=== PATIENT | male | born 1945 | race Caucasian/White ===

== ENCOUNTER 2022-01-11 13:44 | Observation (INO) | payer OTHER ==
[~2022-01-11] VITALS: Ht 188 cm; Wt 107.5 kg
[2022-01-11 14:32] LABS: BASOPHILS ABSOLUTE AUTO 0.04 K/mm3 (0.00-0.23); BASOPHILS PERCENT AUTO 1 % (0-2); EOSINOPHILS ABSOLUTE AUTO 0.06 K/mm3 (0.00-0.68); EOSINOPHILS PERCENT AUTO 1 % (0-6); Hematocrit 49.4 % (37.0-53.0); Hemoglobin 16.2 g/dL (13.5-17.5); IMMATURE GRAN PERCENT AUTO 3 % (0-1); LYMPHOCYTES ABSOLUTE AUTO 2.33 K/mm3 (0.84-5.20); LYMPHOCYTES PERCENT AUTO 29 % (21-46); MONOCYTES PERCENT AUTO 11 % (4-13); Mean Corpuscular HGB 28.8 pg (26.0-34.0); Mean Corpuscular HGB Conc 32.8 g/dL (31.5-36.5); Mean Corpuscular Volume 88 fL (80-100); NEUTROPHILS ABSOLUTE AUTO 4.61 K/mm3 (1.96-9.15); NEUTROPHILS PERCENT AUTO 57 % (41-73); Platelet Count 97 K/mm3 (150-400); RDW Coefficient Variation 13.8 % (11.7-14.2); RDW Standard Deviation 43.9 fL (35.1-46.3); Red Blood Cell Count 5.63 M/mm3 (4.30-5.90); White Blood Cell Count 8.14 K/mm3 (4.00-11.30)
[2022-01-11 14:54] LABS: Alanine Aminotransfer (ALT/SGP 92 U/L (12-78); Albumin, Blood 3.8 g/dL (3.4-5.0); Alk Phos 83 U/L (50-136); Anion Gap 5 mmol/L (6-16); Aspartate Aminotrans (AST/SGOT 54 U/L (12-37); Blood Urea Nitrogen 15 mg/dL (8-24); Bun/Creatinine Ratio 13.6 (12.0-20.0); CO2, Blood 29 mmol/L (21-32); Calcium, Blood 9.5 mg/dL (8.5-10.1); Chloride, Blood 106 mmol/L (98-108); Globulin, Blood 3.8 g/dL (2.2-4.0); Glomerular Filtration Rate >60 (60-); Glucose, Blood 144 mg/dL (70-99); Potassium, Blood 3.8 mmol/L (3.5-5.5); Sodium, Blood 140 mmol/L (136-145); Total Protein, Blood 7.6 g/dL (6.4-8.2)
[2022-01-11 17:14] LABS: Influenza A, PCR NEGATIVE (NEGATIVE); Influenza B, PCR NEGATIVE (NEGATIVE); Resp Syncytial Virus, PCR NEGATIVE (NEGATIVE); SARS-Cov-2 (COVID-19) PCR, MMC NEGATIVE (NEGATIVE)
[2022-01-11] MEDS ORDERED: HYDCHL12.5 PO (17:37)
[2022-01-11] MEDS ORDERED: Inderal40 MG PO (17:37)
[2022-01-11] MEDS ORDERED: FINA5 PO (17:37)
[2022-01-12 04:17] LABS: Hemoglobin 14.1 g/dL (13.5-17.5); Mean Corpuscular HGB 28.5 pg (26.0-34.0); Mean Corpuscular HGB Conc 32.8 g/dL (31.5-36.5); Mean Corpuscular Volume 87 fL (80-100); Platelet Count 73 K/mm3 (150-400); RDW Coefficient Variation 13.7 % (11.7-14.2); RDW Standard Deviation 43.1 fL (35.1-46.3); Red Blood Cell Count 4.94 M/mm3 (4.30-5.90); White Blood Cell Count 7.19 K/mm3 (4.00-11.30)
[2022-01-12 04:21] LABS: Mean Platelet Volume 12.6 fL (9.1-12.4)
[2022-01-12 04:37] LABS: Alanine Aminotransfer (ALT/SGP 67 U/L (12-78); Albumin, Blood 3.2 g/dL (3.4-5.0); Alk Phos 68 U/L (50-136); Anion Gap 4 mmol/L (6-16); Aspartate Aminotrans (AST/SGOT 32 U/L (12-37); Bilirubin, Total 1.3 mg/dL (0.1-1.0); Blood Urea Nitrogen 13 mg/dL (8-24); Bun/Creatinine Ratio 13.8 (12.0-20.0); CO2, Blood 31 mmol/L (21-32); Calcium, Blood 8.6 mg/dL (8.5-10.1); Chloride, Blood 106 mmol/L (98-108); Creatinine, Blood 0.94 mg/dL (0.60-1.20); Globulin, Blood 3.2 g/dL (2.2-4.0); Glomerular Filtration Rate >60 (60-); Glucose, Blood 124 mg/dL (70-99); Potassium, Blood 3.4 mmol/L (3.5-5.5); Sodium, Blood 141 mmol/L (136-145); Total Protein, Blood 6.4 g/dL (6.4-8.2)
--- NOTE | 2022-01-12 04:50 | NUR ---
SHIFT SUMMARY A/O X4. VSS. IND IN RM. NO PAIN REPORTED THROUGHOUT SHIFT. NPO SINCE MIDNIGHT. ABDOMEN SLIGHTLY DISTENDED BUT PATIENT STATES NORMAL. VOIDING WELL. WILL CONTINUE TO MONITOR AND REPORT TO ONCOMING RN.
--- NOTE | 2022-01-12 17:11 | NUR ---
PATIENT CURRENTLY SITTING EDGE OF BED WITH NO SIGNS OR SYMPTOMS ACUTE DISTRESS NOTED. CALL LIGHT AND WATER IN EASY REACH. ABLE TO MAKE NEEDS AND WANTS KNOWN. LAP SITES X 3 TO ABDOMEN WITH DERMABOND, NO DRAINAGE NOTED. CARLOS DRAIN TO RLQ WITH SEROSANG DRAINAGE NOTED. NO COMPLAINTS OF PAIN AT THIS TIME, NO COMPLAINTS OF NAUSEA AT THIS TIME. TAKING PO WELL. AAOX4. PATIENT IS UP AD JOSE ANGEL, STEADY ON FEET. WILL MONITOR.
[2022-01-13 04:01] LABS: BASOPHILS ABSOLUTE AUTO 0.02 K/mm3 (0.00-0.23); BASOPHILS PERCENT AUTO 0 % (0-2); EOSINOPHILS ABSOLUTE AUTO 0.03 K/mm3 (0.00-0.68); EOSINOPHILS PERCENT AUTO 0 % (0-6); Hematocrit 41.8 % (37.0-53.0); Hemoglobin 13.6 g/dL (13.5-17.5); IMMATURE GRAN ABSOLUTE AUTO 0.26 K/mm3 (0.00-0.10); IMMATURE GRAN PERCENT AUTO 2 % (0-1); LYMPHOCYTES PERCENT AUTO 12 % (21-46); MONOCYTES ABSOLUTE AUTO 1.21 K/mm3 (0.16-1.47); MONOCYTES PERCENT AUTO 11 % (4-13); Mean Corpuscular HGB 28.7 pg (26.0-34.0); Mean Corpuscular HGB Conc 32.5 g/dL (31.5-36.5); Mean Corpuscular Volume 88 fL (80-100); NEUTROPHILS ABSOLUTE AUTO 8.15 K/mm3 (1.96-9.15); NEUTROPHILS PERCENT AUTO 74 % (41-73); Platelet Count 71 K/mm3 (150-400); RDW Coefficient Variation 13.8 % (11.7-14.2); RDW Standard Deviation 44.2 fL (35.1-46.3); Red Blood Cell Count 4.74 M/mm3 (4.30-5.90); White Blood Cell Count 10.97 K/mm3 (4.00-11.30)
[2022-01-13 04:05] LABS: Mean Platelet Volume 13.8 fL (9.1-12.4)
--- NOTE | 2022-01-13 04:18 | NUR ---
SHIFT SUMMARY POD1 LAP CHOLECTOMY. 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 PT REPORTS PASSING FLATUS. TOLERATING PO INTAKE WITH NO N/V. VOIDING AND AMBULATING IND IN ROOM. TREATED FOR PAIN PER EMAR ONE TIME AT THE BEGINING OF SHIFT. VITAL SIGNS STABLE. PLEASANT AND COOPERATIVE THROUGHOUT THE SHIFT, WILL CONTINUE TO MOITOR AND REPORT TO ONCOMING RN.
[2022-01-13 04:20] LABS: Alanine Aminotransfer (ALT/SGP 289 U/L (12-78); Albumin, Blood 3.1 g/dL (3.4-5.0); Albumin/Globulin Ratio 0.9 (0.8-1.8); Alk Phos 97 U/L (50-136); Anion Gap 6 mmol/L (6-16); Aspartate Aminotrans (AST/SGOT 280 U/L (12-37); Bilirubin, Total 1.7 mg/dL (0.1-1.0); Blood Urea Nitrogen 14 mg/dL (8-24); Bun/Creatinine Ratio 12.2 (12.0-20.0); CO2, Blood 30 mmol/L (21-32); Calcium, Blood 8.7 mg/dL (8.5-10.1); Chloride, Blood 103 mmol/L (98-108); Creatinine, Blood 1.15 mg/dL (0.60-1.20); Globulin, Blood 3.4 g/dL (2.2-4.0); Glomerular Filtration Rate >60 (60-); Glucose, Blood 186 mg/dL (70-99); Phosphorus, Blood 2.4 mg/dL (2.5-4.9); Potassium, Blood 3.9 mmol/L (3.5-5.5); Sodium, Blood 139 mmol/L (136-145); Total Protein, Blood 6.5 g/dL (6.4-8.2)
[2022-01-13] MEDS ORDERED: Norco 5-325 Ta1 EACH PO (13:07)
[2022-01-13] MEDS ORDERED: Colace100 MG PO (13:07)
[2022-01-13] MEDS ORDERED: MIRALAX17 GM PO (13:08)
--- NOTE | 2022-01-13 13:28 | NUR ---
DISCHARGE INSTUCTIONS GIVEN AT THIS TIME. PATIENT VERBALIZED UNDERSTANDING OF DC INSTRUCTIONS. MEDS FAXED TO [facility]. PRESCRIPTION GIVEN FOR PAIN MEDS. DRESSING TO [facility]. NO SIGNS OR SYMPTOMS ACUTE DISTRESS NOTED. NO COMPLAINTS OF PAIN VOICED. PATIENT AMBULATED TO CAR.
== END 2022-01-13 13:25 | disposition home or self-care (01) ==
LOC: ER 13:44 → SURS 13:45
PROVIDERS: Physician Assistant; Surgery; ADMIT Internal Medicine
PROC: 0FT44ZZ Resection of Gallbladder, Percutaneous Endoscopic Approach (ICD-10-PCS; principal; 2022-01-12 08:30)
PROC: BF10YZZ Fluoroscopy of Bile Ducts using Other Contrast (ICD-10-PCS; principal; 2022-01-12 08:30)
DX: K80.00 Calculus of gallbladder with acute cholecystitis without obstruction (principal); D69.6 Thrombocytopenia, unspecified; I10 Essential (primary) hypertension; N40.0 Benign prostatic hyperplasia without lower urinary tract symptoms; R79.89 Other specified abnormal findings of blood chemistry; E88.81 Metabolic syndrome and other insulin resistance; Z87.891 Personal history of nicotine dependence; Z20.822 Contact with and (suspected) exposure to COVID-19
CPT/HCPCS: 0241U; 36415; 74300; 76705; 80053; 83690; 84100; 85025; 85027; 86850; 86900; 86901; 99285-25; A9270; C1729; J0690; J1100; J2250; J2405; J2543; J2704; J3010; J7030

== ENCOUNTER 2023-04-09 09:52 | Inpatient (IN) | payer OTHER ==
[~2023-04-09] VITALS: Ht 188 cm; Wt 83.9 kg
[~2023-04-09 09:52] MED LIST: Colace100 MG PO; FINA5 PO; HYDCHL12.5 PO; Inderal40 MG PO; MIRALAX17 GM PO; Norco 5-325 Ta1 EACH PO
[2023-04-09 10:44] LABS: Hemoglobin 14.6 g/dL (13.5-17.5); Mean Corpuscular HGB 26.2 pg (26.0-34.0); Mean Corpuscular HGB Conc 31.7 g/dL (31.5-36.5); Mean Corpuscular Volume 83 fL (80-100); Platelet Count 109 K/mm3 (150-400); RDW Coefficient Variation 14.6 % (11.7-14.2); RDW Standard Deviation 43.8 fL (35.1-46.3); Red Blood Cell Count 5.57 M/mm3 (4.30-5.90)
[2023-04-09 10:53] LABS: White Blood Cell Count 18.67 K/mm3 (4.00-11.30)
[2023-04-09 10:58] LABS: International Normalized Ratio 1.19; Prothrombin Time Results 12.4 Sec (9.7-11.5)
[2023-04-09 11:10] LABS: BASOPHILS PERCENT MAN 0 % (0-2); EOSINOPHILS ABSOLUTE MAN 0.18 K/mm3 (0.00-0.68); EOSINOPHILS PERCENT MAN 1 % (0-6); LYMPHOCYTES ABSOLUTE MAN 0.74 K/mm3 (0.84-5.20); LYMPHOCYTES PERCENT MAN 4 % (21-46); MONOCYTES ABSOLUTE MAN 2.42 K/mm3 (0.16-1.47); MONOCYTES PERCENT MAN 13 % (4-13); MYELOCYTE ABSOLUTE MAN 0.18 K/mm3 (0.00-0.00); MYELOCYTE PERCENT MAN 1 % (0-0); NEUTROPHILS ABSOLUTE MAN 15.12 K/mm3 (1.96-9.15); SEG NEUTROPHILS PERCENT MAN 81 % (41-73); TOTAL CELLS COUNTED 100
[2023-04-09 11:20] LABS: Albumin, Blood 3.4 g/dL (3.4-5.0); Albumin/Globulin Ratio 0.9 (0.8-1.8); Bilirubin, Total 1.3 mg/dL (0.1-1.0); Bun/Creatinine Ratio 26.5 (12.0-20.0); Calcium, Blood 9.3 mg/dL (8.5-10.1); Creatinine, Blood 1.13 mg/dL (0.60-1.20); Globulin, Blood 3.8 g/dL (2.2-4.0); Potassium, Blood 4.1 mmol/L (3.5-5.5); Total Protein, Blood 7.2 g/dL (6.4-8.2)
[2023-04-09 14:02] VITALS: BP 151/83
[2023-04-09 16:03] VITALS: BP 113/67
--- NOTE | 2023-04-09 16:27 | NUR ---
TRANSFER SUMMARY: PT ARRIVED TO PCU FROM ER VIA [facility] AT APPROX 1345. PT ALERT AND ORIENTED X4, ABLE TO MAKE NEEDS KNOWN AND ANSWER QUESTIONS APPROPRIATELY. PT APPEARS SHORT OF BREATH AND HAS A HARD TIME LAYING FLAT. PT ON 2L NASAL CANNULA WITH SPO2 IN THE 90'S. PT IN AFIB WITH RVR, HR 140-150'S WITH EXERTION, ON CARDIZEM GTT AT 10 ML/HR. PT ABLE TO STAND AND TRANSFER WITH MINIMAL ASSIST. PT STARTED ON HEPARIN GTT AT 15 U/KG/HR. PT AT THE BEDSIDE AND UPDATED TO PLAN OF CARE. PT EDUCATED ON THE USE OF THE CALL LIGHT WHEN GETTING OUT OF BED. WILL CONTINUE TO MONITOR.
[2023-04-09 19:55] VITALS: BP 118/87
[2023-04-10 00:18] VITALS: BP 126/74
[2023-04-10 03:02] VITALS: BP 119/104
[2023-04-10 04:25] LABS: Hematocrit 41.3 % (37.0-53.0); Hemoglobin 13.2 g/dL (13.5-17.5); Mean Corpuscular HGB 26.1 pg (26.0-34.0); Mean Corpuscular Volume 82 fL (80-100); Platelet Count 92 K/mm3 (150-400); RDW Coefficient Variation 14.6 % (11.7-14.2); RDW Standard Deviation 43.2 fL (35.1-46.3); Red Blood Cell Count 5.05 M/mm3 (4.30-5.90)
[2023-04-10 04:47] LABS: White Blood Cell Count 15.35 K/mm3 (4.00-11.30)
[2023-04-10 04:48] LABS: Creatinine, Blood 1.16 mg/dL (0.60-1.20); Potassium, Blood 3.1 mmol/L (3.5-5.5); Thyroid Stimulating Hormone 0.906 uIU/mL (0.360-4.800)
--- NOTE | 2023-04-10 06:55 | NUR ---
SHIFT SUMMARY PATIENT ALERT AND ORIENTED X4. HAD NO COMPLAINTS OF PAIN OR SHORTNESS OF BREATH. LUNG SOUNDS CLEAR, ON 2 LITERS O2 VIA NASAL CANULA. BLOOD PRESSURE STABLE. PATIENT CONTINUES ON CARDIZEM FOR RATE CONTROL, CURRENTLY RUNNING AT 5 MG/HR. PATIENT MEDICATED WITH [address] FLETCHER FOR POTASSIUM OF 3.1 THIS MORNING. HEPARING RUNNING AT 15 U/KG/HR. WILL CONTINUE TO MONITOR. CALL LIGHT WITHIN REACH.
[2023-04-10 07:40] VITALS: BP 130/73
[2023-04-10 11:16] VITALS: BP 114/82
[2023-04-10 16:09] VITALS: BP 151/98
--- NOTE | 2023-04-10 17:01 | NUR ---
SHIFT SUMMARY PT IS A&O X4. VSS. SPO2 >92% ON 1 L NC. AFIB HR 110'S-150'S. PT DENIES CP OR SOB. CARDIZEM GTT INFUSING @ RATE OF 15 ML/HR. HEPARIN GTT INFUSING 15 UNITS/KG/HR PER ORDERS. ECHO DONE IN ROOM TODAY PER MD ORDERS. PT WITH NO OTHER COMPLAINTS AT THIS TIME. BED IN LOWEST POSITION AND CALL LIGHT IN REACH.
[2023-04-10 20:00] VITALS: BP 123/93
[2023-04-11] VITALS (7 sets, daily range): BP systolic 102–149; BP diastolic 23–121
[2023-04-11 04:36] LABS: Bun/Creatinine Ratio 27.2 (12.0-20.0); Creatinine, Blood 1.03 mg/dL (0.60-1.20); Potassium, Blood 3.5 mmol/L (3.5-5.5)
[2023-04-11 04:43] LABS: Hematocrit 40.6 % (37.0-53.0); Mean Corpuscular HGB 25.9 pg (26.0-34.0); Mean Corpuscular Volume 81 fL (80-100); Platelet Count 84 K/mm3 (150-400); RDW Coefficient Variation 14.6 % (11.7-14.2); RDW Standard Deviation 42.8 fL (35.1-46.3); Red Blood Cell Count 5.02 M/mm3 (4.30-5.90)
[2023-04-11 04:49] LABS: White Blood Cell Count 14.31 K/mm3 (4.00-11.30)
--- NOTE | 2023-04-11 05:53 | NUR ---
SHIFT SUMMARY PT REMAINS A&O X4. VSS THROUGHOUT SHIFT; HEART RHYTHM REMAINS AFIB, HR 90- 1 TEENS. HR CONTINUES TO INCREASE TO 120 - 140'S W/EXERTION. CARDIZEM GTT INFUSING AT 15 MLS/HR. PT DENIES CP OR PRESSURE. PT REPORTS SOB W/EXERTION. PT ON 1 - 2 L PRN, THIS SHIFT PT ON 2 L VIA NC WHILE SLEEPING. PT DENIES ANY ISSUES VOIDING OR PASSING BM. PT USING URINAL INDEPENDENTLY AT BEDSIDE. NO ACUTE CHANGES DURING THIS SHIFT. HEPARIN INFUSING PER EMAR AT 15 U/KG/HR. CALL LIGHT IN REACH. PT RESTED WELL THIS SHIFT. WILL UPDATE ONCOMING RN
--- NOTE | 2023-04-11 17:57 | NUR ---
SHIFT SUMMARY PT IS A&O X4. VSS. SPO2 >92% ON 1L NC. AFIB HR 90'S-110'S W/ CARDIZEM GTT INFUSING @ 10 ML/HR. HEPARIN GTT DISCONTINUED PER MD ORDERS AND XARELTO STARTED PER ORDERS. PT LYING IN BED IN LOWEST POSITION. PT WITH NO OTHER COMPLAINTS. CALL LIGHT IN REACH. WILL CONTINUE TO MONITOR.
--- NOTE | 2023-04-11 20:58 | NUR ---
ASSUMPTION OF CARE THIS RN ASSUMED CARE OF PATIENT AT 1900. REPORT TAKEN FROM EFE GARCIA AND STUDENT RN HARPREET. PATIENT ALERT AND ORIENTED FULLY, ABLE TO MAKE NEEDS KNOWN. BP STABLE. AFEBRILE. SPO2 >92% ON 1L VIA NC. AFIB WITH HR 80-100'S. CARDIZEM GTT PLACED ON STANDBY AT 2100 D/T HR MAINTAINING 70-90'S. PATIENT IS ABLE TO REPOSITION SELF IN BED INDEPENDENTLY. BED IN LOWEST POSITION AND CALL LIGHT WITHIN REACH.
[2023-04-12] VITALS (9 sets, daily range): BP systolic 96–128; BP diastolic 58–83
--- NOTE | 2023-04-12 05:12 | NUR ---
SHIFT SUMMARY PATIENT DID WELL WITH CARDIZEM GTT ON STANDBY MOST OF THE NIGHT. HOWEVER, HR TRENDED UP AND GTT WAS TURNED BACK TO 5MLS/HR, TITRATING TO 10MLS/HR. HR CURRENTLY MAINTAINING 110-120'S. BP STABLE. AFEBRILE. SPO2 >92% ON 1L. PATIENT INDEPENDENT WITH ADL'S. ALERT AND ORIENTED FULLY. ABLE TO MAKE NEEDS KNOWN. BED IN LOWEST POSITION AND CALL LIGHT WITHIN REACH. THIS RN WILL CONTINUE TO MONITOR UNTIL SHIFT CHANGE AT 0700.
--- NOTE | 2023-04-12 17:29 | NUR ---
END OF SHIFT SUMMARY PT IS A&O X4. VSS. SPO2 >92% ON RA. AFIB HR 80'S-110'S. CARDIZEM GTT INFUSING THIS AM AT 10 ML/HR. TITRATED OFF THIS SHIFT WITH PT TAKING PO CARDIZEM PRN PER MD SON. PT DENIES ANY CP OR SOB. PT RESTING IN BED IN LOWEST POSITION AND CALL LIGHT IN REACH. PT WITH NO OTHER COMPLAINTS AT THIS TIME.
[2023-04-13] VITALS (7 sets, daily range): BP systolic 99–123; BP diastolic 62–77
--- NOTE | 2023-04-13 05:08 | NUR ---
SHIFT SUMMARY THIS RN ASSUMED CARE OF PATIENT AT 1900. PATIENT CONTINUES TO BE IN AFIB. PRN PO CARDIZEM USED Q6HRS FOR RATE CONTROL. HR 90-130'S DURING THIS SHIFT. BP STABLE. AFEBRILE. SPO2 >92% ON RA. PATIENT INDEPENDENT WITH ADL'S. ALERT AND ORIENTED FULLY AND ABLE TO MAKE NEEDS KNOWN. BED IN LOWEST POSITION AND CALL LIGHT WITHIN REACH. THIS RN WILL CONTINUE TO MONITOR UNTIL SHIFT CHANGE AT 0700.
[2023-04-13 11:37] LABS: Bun/Creatinine Ratio 21.4 (12.0-20.0); Calcium, Blood 9.2 mg/dL (8.5-10.1); Creatinine, Blood 1.12 mg/dL (0.60-1.20); Potassium, Blood 3.9 mmol/L (3.5-5.5)
[2023-04-13 15:22] LABS: Source, Urine Clean Catch
[2023-04-13 15:45] LABS: Appearance, Urine Clear (Clear); Bilirubin, Urine Neg (Neg); Blood, Urine 2+ (Neg); Color, Urine Yellow (P-Yellow); Glucose Qualitative, Urine Neg (Neg); Ketones, Urine Neg (Neg); Leukocyte Esterase, Urine Neg (Neg); Nitrite, Urine Neg (Neg); Protein, Urine 1+ (Neg); Specific Gravity, Urine 1.015 (1.003-1.022); Urobilinogen, Urine NORM (Normal)
[2023-04-13 16:45] LABS: Bacteria Mod /hpf; Squamous Epithelial Cells Rare /hpf (Few); White Blood Cells, Urine 0-2 /hpf (0-5)
--- NOTE | 2023-04-13 17:42 | NUR ---
SHIFT SUMMARY PT A&OX4. SP02>90% oN RA. SOB W/ SOME EXERTION. TELEMETRY SHOWED AT BEGINNING OF SHIFT AFIB, HR MOSTLY 120'S UP TO 17O'S W/ MOVEMENT. MD SON IN ROOM TO ASSESS PT. MD SON INCREASED METOPROLOL DOSE, SEE EMAR. MD SON W/ ONE ADDITIONAL DOSE METOPROLOL PO THIS EVENING. CARDIZEM PO GIVEN PER PRN EMAR. PT'S HR CURRENTLY 100'S. BP 90'S-100'S SYSTOLIC. PT REPORTS "BURNING" THIS AFTERNOON WHILE VOIDING. CALL PLACED TO MD SON. MD SON W. ORDERS FOR UA. COLLECTED AND SENT TO LAB, SEE RESULTS. PT UP TO BSC TO HAVE BM. IN ROOM FOR MOST OF DAY. CALL LIGHT IN REACH.
[2023-04-14] VITALS (7 sets, daily range): BP systolic 93–121; BP diastolic 44–98
--- NOTE | 2023-04-14 05:38 | NUR ---
SHIFT SUMMARY A/OX4, SBA TO BSC/IND WITH URINAL. SPO2 >92% ON RA. TELE AFIB 100-130, INCREASES TO 150S WITH EXERTION. MEDICATED WITH PRN PO CARDIZEM. DENIES CHEST PAIN/PRESSURE. VSS, NO ACUTE CHANGES AT THIS TIME. BED IN LOWEST POSITION WITH CALL LIGHT IN REACH. WILL CONTINUE TO MONITOR AND REPORT TO ONCOMING RN.
--- NOTE | 2023-04-14 07:40 | NUR ---
ASSUMED CARE: ASSUMED CARE OF PT APPROX 0715. PT A&OX4, RESTING IN BED. PT ABLE TO MAKE NEEDS TO KNOWN THIS AM. SPO2 >90% ON RA. PT DENIES SOB. SBP 121. HR 110'S, AFIB. PT DENIES CHEST PAIN/PRESSURE. PT ABLE TO VOID INDEPENDENTLY WITH URINAL. NO FURTHER NEEDS AT THIS TIME. CALL LIGHT WITHIN REACH.
--- NOTE | 2023-04-14 18:03 | NUR ---
SHIFT SUMMARY: PT A&OX4. ABLE TO MAKE NEEDS KNOWN TO STAFF. SPO2 >90% ON RA. SOB WITH EXERTION. PT DENIES SOB AT REST. HR MOSTLY 110-130'S, AFIB. HR UP TO 160'S WITH MOVEMENT. PO CARDIZEM ADMINISTERED THIS AM. PRN CARDIZEM THEN DC'D. HR INCREASED TO 160'S THIS PM. CALL PLACED TO MD CANALES. MD CANALES WITH ORDERS FOR 1 TIME PO CARDIZEM. ADMINISTERED PER EMAR. SBP MOSTLY 90-100'S THIS SHIFT. PT DENIES CP/PRESSURE. PT ABLE TO VOID INDEPENDENTLY WITH URINAL. PT'S AT BEDSIDE. CALL LIGHT WITHIN REACH. NO FURTHER NEEDS AT THIS TIME.
[2023-04-15 04:53] VITALS: BP 116/72
[2023-04-15 05:06] LABS: Calcium, Blood 9.7 mg/dL (8.5-10.1); Creatinine, Blood 1.16 mg/dL (0.60-1.20); Magnesium, Blood 2.2 mg/dL (1.6-2.4); Potassium, Blood 4.5 mmol/L (3.5-5.5)
[2023-04-15 07:31] VITALS: BP 102/70
[2023-04-15 09:17] VITALS: BP 102/56
--- NOTE | 2023-04-15 10:26 | NUR ---
AM NOTE: PATIENT ALERT AND ORIENTED X4. HARD OF HEARING. PERRLA, WEARING GLASSES. DENIES NUMBNESS/TINGLING. ABLE TO MOVE AND ADJUST SELF IND IN BED. THIS RN ASKED FOR PATIENT TO CALL WHEN UP, SO WE CAN ASSIST TO BATHROOM. ON ROOM AIR SATING ABOVE 95%. SOB WITH MOVEMENTS. LUNGS SOUNDING CLEAR/DIM IN UPPER LOBES AND DIMINISHED IN BASES. NO CRACKLES/WHEEZING HEARD. DENIES COUGH. TELE SHOWING AFIB RVR WITH HR 120-130'S AT REST AND UP TO 160'S WITH MOVEMENT. DENIES CHEST PAIN/PRESSURE/PALPITATIONS. DENIES FEELING HEART RACING. BP ON SOFT SIDE. NO SIGNS OF EDEMA NOTED. DR. CANALES CALLED THIS AM REGARDING PATIENT HEART RATE. SEE EMAR FOR ORDERS. AMIO GTT STARTED PER DR. CANALES. PATIENT EDUCATED ON MEDICATION AND POTENTIAL SIDE EFFECTS. AMIO INFUSING IN LEFT FA IV. HR TRENDING DOWN, AVERAGING 120'S. DENIES ABDOMINAL PAIN/NAUSEA. VOIDING AND EATING WNL. USING URINAL AT BEDSIDE. PATIENT SLEEPING AT THIS TIME.
[2023-04-15 11:46] VITALS: BP 123/54
--- NOTE | 2023-04-15 12:04 | NUR ---
AFTERNOON VITALS REMAIN STABLE. AMIO GTT CONTINUES TO INFUSE. AT BEDSIDE AND UPDATED ON PLAN OF CARE. HR AVERAGING 110-120'S AT REST IN BED. OCCASIONALLY SPIKING UP TO 140'S WITH ACTIVITY AND REST ON AMIO GTT. EATING LUNCH AT THIS TIME.
[2023-04-15 15:01] VITALS: BP 117/56
--- NOTE | 2023-04-15 17:35 | NUR ---
SHIFT SUMMARY: NO ACUTE CHANGES. REMAINS ALERT AND ORIENTED X4. ON ROOM AIR. TELE SHOWING AFIB WITH HR 90-130'S. AMIO GTT CONTINUES TO INFUSE PER EMAR. IV SITE CHECKS FREQUENTLY. DENIES ABDOMINAL PAIN/NAUSEA. USING URINAL TO VOID. EATING DINNER AT THIS TIME. AT BEDSIDE. CONTINUES TO DENY CHEST PAIN/PRESSURE/PALPITATIONS. BP STABLE.
[2023-04-15 19:55] VITALS: BP 101/61
[2023-04-16 00:54] VITALS: BP 112/69
[2023-04-16 04:13] LABS: Albumin, Blood 3.3 g/dL (3.4-5.0); Albumin/Globulin Ratio 0.9 (0.8-1.8); Bilirubin, Total 1.4 mg/dL (0.1-1.0); Bun/Creatinine Ratio 26.1 (12.0-20.0); Creatinine, Blood 1.15 mg/dL (0.60-1.20); Globulin, Blood 3.7 g/dL (2.2-4.0); Potassium, Blood 4.6 mmol/L (3.5-5.5)
[2023-04-16 05:30] VITALS: BP 111/71
--- NOTE | 2023-04-16 05:57 | NUR ---
SHIFT SUMMARY A/OX4, SBA TO BSC/IND WITH URINAL. SPO2 >92% ON RA. TELE AFIB 100-130, AMIO GTT CURRENTLY RUNNING. MEDICATED WITH PRN PO CARDIZEM. DENIES CHEST PAIN/PRESSURE. VSS, NO ACUTE CHANGES AT THIS TIME. BED IN LOWEST POSITION WITH CALL LIGHT IN REACH. WILL CONTINUE TO MONITOR AND REPORT TO ONCOMING RN.
[2023-04-16 07:32] VITALS: BP 115/74
--- NOTE | 2023-04-16 08:00 | NUR ---
UPDATE DURING AM ASSESSMENT NOTED PT TO HAVE IV INFILTRATION OF AMIO GTT IN L ARM. IV STOPPED, IV REMOVED, ICE PLACED. AMIO GTT RE-STARTED IN R AC IV. WITHIN 10 MINUTES IV INFILTRATED. NEW IV PLACED. PHARMACY NOTIFIED, MD NOTIFIED. SEE EMAR FOR ORDERS. WILL CONT TO MIGUEL.
--- NOTE | 2023-04-16 10:30 | NUR ---
AMIO GTT FINISHED INFUSING THROUGH L AC. SITE WNL. WILL CONSULT MD REGARDING PLAN FOR AMIO D/T INFILTRATION THIS AM. WILL CONT TO MONITOR.
[2023-04-16 12:26] VITALS: BP 107/77
--- NOTE | 2023-04-16 14:00 | NUR ---
UPDATE SPOKE WITH MD REGARDING PO AMIO. PLAN TO CONT AMIO GTT AT 17 ML/HR AND INCLUDE PO AMIO. PLAN TO RE-ASSESS HR LATER ON AND PLAN TO D/C AMIO GTT ONCE HR UNDER CONTROL. WILL CONT TO MARIYA.
--- NOTE | 2023-04-16 17:54 | NUR ---
SHIFT SUMMARY PT ALERT AND ORIENTED X 4. HR TACHY, AFIB. HR 110-130'S. AWARE. PT ON AMIO GTT AT 17 ML/HR. PT MARYCRUZ WELL. ICE PACK TO INFILTRATION SITES. PT REPORTS RELIEF. OXYGEN SATURATION MAINTAINED ABOVE 92% ON RA. PT SBA TO BATHROOM. PT ABLE TO TURN SELF IN BED. AT BEDSIDE WITH PT. NO CP OR PRESSURE REPORTED. CALL LIGHT WITHIN REACH. WILL CONT TO MONITOR UNTIL REPORT GIVEN TO NIGHTSHIFT RN.
[2023-04-16 20:26] VITALS: BP 129/90
[2023-04-16 23:22] VITALS: BP 107/80
[2023-04-17 04:00] VITALS: BP 117/83
[2023-04-17 04:16] LABS: Hematocrit 42.6 % (37.0-53.0); Hemoglobin 13.7 g/dL (13.5-17.5); Mean Corpuscular HGB 25.9 pg (26.0-34.0); Mean Corpuscular HGB Conc 32.2 g/dL (31.5-36.5); Mean Corpuscular Volume 81 fL (80-100); Platelet Count 69 K/mm3 (150-400); RDW Coefficient Variation 14.8 % (11.7-14.2); RDW Standard Deviation 43.1 fL (35.1-46.3); Red Blood Cell Count 5.29 M/mm3 (4.30-5.90)
[2023-04-17 04:37] LABS: Albumin, Blood 3.3 g/dL (3.4-5.0); Albumin/Globulin Ratio 0.9 (0.8-1.8); Bilirubin, Total 1.4 mg/dL (0.1-1.0); Calcium, Blood 9.4 mg/dL (8.5-10.1); Creatinine, Blood 1.25 mg/dL (0.60-1.20); Globulin, Blood 3.7 g/dL (2.2-4.0); Potassium, Blood 4.4 mmol/L (3.5-5.5)
[2023-04-17 04:48] LABS: White Blood Cell Count 15.93 K/mm3 (4.00-11.30)
[2023-04-17 04:52] LABS: BAND PERCENT MAN 4 % (0-8); BASOPHILS ABSOLUTE MAN 0.15 K/mm3 (0.00-0.23); BASOPHILS PERCENT MAN 1 % (0-2); EOSINOPHILS ABSOLUTE MAN 0.31 K/mm3 (0.00-0.68); EOSINOPHILS PERCENT MAN 2 % (0-6); LYMPHOCYTES ABSOLUTE MAN 0.79 K/mm3 (0.84-5.20); LYMPHOCYTES PERCENT MAN 5 % (21-46); MONOCYTES ABSOLUTE MAN 2.54 K/mm3 (0.16-1.47); MONOCYTES PERCENT MAN 16 % (4-13); SEG NEUTROPHILS PERCENT MAN 72 % (41-73); TOTAL CELLS COUNTED 100
--- NOTE | 2023-04-17 05:05 | NUR ---
SHIFT SUMMARY ASSUMED CARE OF PT AT 1900. PT IS A/OX4. NO ACUTE EVENTS. PT SLEPT T/O THE NOC. PT HAD SOME PAIN FROM ANGIO INFILTRATION SITE, MEDICATED PER EMAR AND PT STATES RELEIF.
[2023-04-17 08:41] VITALS: BP 97/72
[2023-04-17 08:48] VITALS: BP 117/71
[2023-04-17 11:08] VITALS: BP 91/73
[2023-04-17 16:40] VITALS: BP 125/73
--- NOTE | 2023-04-17 16:44 | NUR ---
SHIFT SUMMARY This RN assumed care at 0700. vital signs stable, and have remained stable throughout this RN shift. tele afib 100-120. patient is alert and oriented x4. perrla. patient is indepdent in the room. patient uses the call light approrpiately. patient reports no pain, chest pain/pressure, or shortness of breath. see shift assessment for further detials. patient has been at bedside on and off throughout the day. no acute changes. plan of care is up to date.
[2023-04-17 19:35] VITALS: BP 118/79
[2023-04-18] VITALS (7 sets, daily range): BP systolic 101–127; BP diastolic 67–85
--- NOTE | 2023-04-18 05:25 | NUR ---
SHIFT SUMMARY ASSUMED CARE OF PT AT 1900. PT IS A/OX4. HEART SOUNDS IRREGULAR. LUNG SOUNDS IMPROVED AND CLEAR. PT USED IRNAL AT BEDSIDE. AMIO GTT OFF AT 2100. PT HR RANGED FROM 100-120. NO ACUTE EVENTS.
[2023-04-18 08:09] LABS: Hematocrit 42.2 % (37.0-53.0); Hemoglobin 13.7 g/dL (13.5-17.5); Mean Corpuscular HGB Conc 32.5 g/dL (31.5-36.5); Mean Corpuscular Volume 80 fL (80-100); Platelet Count 68 K/mm3 (150-400); RDW Coefficient Variation 14.8 % (11.7-14.2); RDW Standard Deviation 42.8 fL (35.1-46.3); Red Blood Cell Count 5.27 M/mm3 (4.30-5.90)
[2023-04-18 08:22] LABS: White Blood Cell Count 14.84 K/mm3 (4.00-11.30)
[2023-04-18 08:35] LABS: Bun/Creatinine Ratio 25.2 (12.0-20.0); Calcium, Blood 9.4 mg/dL (8.5-10.1); Creatinine, Blood 1.11 mg/dL (0.60-1.20); Potassium, Blood 4.4 mmol/L (3.5-5.5)
[2023-04-18 08:57] LABS: BASOPHILS PERCENT MAN 0 % (0-2); EOSINOPHILS PERCENT MAN 0 % (0-6); LYMPHOCYTES ABSOLUTE MAN 1.03 K/mm3 (0.84-5.20); LYMPHOCYTES PERCENT MAN 7 % (21-46); MONOCYTES ABSOLUTE MAN 2.07 K/mm3 (0.16-1.47); MONOCYTES PERCENT MAN 14 % (4-13); NEUTROPHILS ABSOLUTE MAN 11.72 K/mm3 (1.96-9.15); SEG NEUTROPHILS PERCENT MAN 79 % (41-73); TOTAL CELLS COUNTED 100
--- NOTE | 2023-04-18 17:48 | NUR ---
SHIFT SUMMARY This RN assumed care at 0700. vital signs stable and have remained stable throughout this RN shift,. patient is alert and oriented x4. perrla. patient reports no pain, chest pain/pressure, no shortness of breath. see shift assessment for further detials. patient abmulated around the unit today and heart rate was 110-120s, and the highest while walking was 128. tele afib 90-120. no acute changes this shift. patient indepdent in the room. call light is within reach and uses call light appropriately to make needs known. plan of care is up to date
[2023-04-19 04:05] LABS: Hematocrit 41.3 % (37.0-53.0); Hemoglobin 13.2 g/dL (13.5-17.5); Mean Corpuscular HGB 25.7 pg (26.0-34.0); Mean Corpuscular Volume 80 fL (80-100); Platelet Count 69 K/mm3 (150-400); RDW Coefficient Variation 14.6 % (11.7-14.2); Red Blood Cell Count 5.14 M/mm3 (4.30-5.90)
[2023-04-19 04:09] LABS: White Blood Cell Count 15.46 K/mm3 (4.00-11.30)
[2023-04-19 04:20] LABS: Bun/Creatinine Ratio 24.8 (12.0-20.0); Calcium, Blood 9.4 mg/dL (8.5-10.1); Creatinine, Blood 1.17 mg/dL (0.60-1.20); Magnesium, Blood 2.2 mg/dL (1.6-2.4); Potassium, Blood 4.7 mmol/L (3.5-5.5)
[2023-04-19 05:04] LABS: BAND PERCENT MAN 2 % (0-8); BASOPHILS PERCENT MAN 0 % (0-2); EOSINOPHILS ABSOLUTE MAN 0.15 K/mm3 (0.00-0.68); EOSINOPHILS PERCENT MAN 1 % (0-6); LYMPHOCYTES % ATYPICAL MANUAL 1 % (0-0); LYMPHOCYTES PERCENT MAN 12 % (21-46); MONOCYTES ABSOLUTE MAN 2.47 K/mm3 (0.16-1.47); MONOCYTES PERCENT MAN 16 % (4-13); NEUTROPHILS ABSOLUTE MAN 10.82 K/mm3 (1.96-9.15); SEG NEUTROPHILS PERCENT MAN 68 % (41-73); TOTAL CELLS COUNTED 100
[2023-04-19 05:25] VITALS: BP 118/77
--- NOTE | 2023-04-19 06:12 | NUR ---
SHIFT SUMMARY PATIENT ALERT AND ORIENTED X4, INDEPENDENT IN HIS ROOM. HAD NO COMPLAINTS OF PAIN OR SHORTNESS OF BREATH. SPO2 >90% ON ROOM AIR. VITAL SIGNS STABLE. CONTINUES IN AFIB 90'S-120'S DEPENDING ON ACTIVITY LEVEL. NO ACUTE ISSUES NOTED OVERNIGHT. WILL CONTINUE TO MONITOR. CALL LIGHT WITHIN REACH.
[2023-04-19 07:51] VITALS: BP 107/57
[2023-04-19 12:26] VITALS: BP 111/78
[2023-04-19 15:45] VITALS: BP 128/76
--- NOTE | 2023-04-19 17:17 | NUR ---
SHIFT SUMMARY PT REMAINS ALERT AND ORIENTED. BP STABLE. HR HAS BEEN AFIB 80-90'S THIS AFTERNOON. O2 SATS REMAIN ABOVE 90% ON RA. PT DENIES ANY PAIN OR DISCOMFORT. PT ABLE TO TOLERATE SHOWER THIS EVENING WITH ASSISTANCE OF HIS SPOUSE. WILL CONTINUE TO MONITOR AND REPORT TO ONCOMING RN
[2023-04-19 20:22] VITALS: BP 110/71
[2023-04-19 23:54] VITALS: BP 113/65
[2023-04-20 03:29] VITALS: BP 111/73
[2023-04-20 04:36] LABS: Bun/Creatinine Ratio 23.6 (12.0-20.0); Calcium, Blood 9.1 mg/dL (8.5-10.1); Creatinine, Blood 1.1 mg/dL (0.60-1.20); Potassium, Blood 4.4 mmol/L (3.5-5.5)
--- NOTE | 2023-04-20 05:07 | NUR ---
SHIFT SUMMARY PT IS ALERT AND ORIENTED X 4. VSS, HE REMAINS ON ROOM AIR, HR IS AFIB 90'S PER TELE MONITORING. HE HAS CONTINUED TO DENY FEELINGS OF CHEST PAIN/PRESSURE. PT REPORTED FEELINGS OF SOB IS AT BASELINE LEVEL. PAIN REPORTED IN LEFT FOREARM AT PREVIOUS IV SITE, SKIN IS RED/BLANCHABLE. PT HAS BEEN INDEPENDENT TO BATHROOM TO VOID. NO ACUTE CHANGES NOTED. PT APPEARED TO BE SLEEPING COMFORTABLY IN BETWEEN PT CARE. WILL CONTINUE TO MONITOR AND REPORT TO ONCOMING RN. CALL LIGHT IS W/IN REACH.
[2023-04-20 08:19] VITALS: BP 107/64
[2023-04-20 12:45] VITALS: BP 102/54
[2023-04-20 16:18] VITALS: BP 109/69
--- NOTE | 2023-04-20 17:00 | NUR ---
SHIFT SUMMARY PT REMAINS ALERT AND ORIENTED. BP STABLE. HR HAS BEEN AFIB 80-100'S ALL SHIFT. PT REMAINS ON RA WITH SATS >90%. PT DENIES ANY PAIN. PT ABLE TO AMBULATE INDEPENDENTLY IN HIS ROOM. PLAN FOR EKG IN THE AM TO RECHECK QTC. WILL CONTINUE TO MONITOR CLOSELY AND REPORT TO ONCOMING RN
[2023-04-20 19:50] VITALS: BP 127/68
[2023-04-21 00:45] VITALS: BP 110/59
[2023-04-21 05:25] VITALS: BP 120/81
[2023-04-21 07:37] VITALS: BP 132/71
[2023-04-21] MEDS ORDERED: ACET325 PO (13:25)
[2023-04-21] MEDS ORDERED: FURO20 PO (13:25)
[2023-04-21] MEDS ORDERED: METO25ER PO (13:26)
[2023-04-21] MEDS ORDERED: Amiodarone HCl200 MG PO (13:26)
[2023-04-21] MEDS ORDERED: XARELTO20 MG PO (13:26)
[2023-04-21] MEDS ORDERED: DOCUZEN 8.6-501 EACH PO (13:28)
--- NOTE | 2023-04-21 14:13 | NUR ---
UPDATE REPEAT EKG DONE AT NOON, AT DR. CANALES CALLED AND NOTIFIED. DR. CANALES IN AND REVIEWED WITH PATIENT DISCHARGE INSTRUCTIONS. THIS RN PROVIDED DC INSTRUCTIONS TO PT AND SPOUSE. ALL QUESTIONS ANSWERED. PT EDUCATED ON NEW MEDICATIONS. PT TAKEN OUT BY SCARLETT
== END 2023-04-21 14:16 | disposition home or self-care (01) | DRG 291 ==
LOC: ER 09:52 → PCU 13:32
PROVIDERS: Internal Medicine; Physician Assistant; ADMIT Internal Medicine
PROC: 5A0935A Assistance with Respiratory Ventilation, Less than 24 Consecutive Hours, High Flow/Velocity Cannula (ICD-10-PCS; principal; 2023-04-09)
DX: I11.0 Hypertensive heart disease with heart failure (principal); I50.41 Acute combined systolic (congestive) and diastolic (congestive) heart failure; J96.91 Respiratory failure, unspecified with hypoxia; I48.19 Other persistent atrial fibrillation; C34.32 Malignant neoplasm of lower lobe, left bronchus or lung; C78.7 Secondary malignant neoplasm of liver and intrahepatic bile duct; E11.9 Type 2 diabetes mellitus without complications; D69.6 Thrombocytopenia, unspecified; I44.7 Left bundle-branch block, unspecified; N40.0 Benign prostatic hyperplasia without lower urinary tract symptoms; E87.6 Hypokalemia; N28.9 Disorder of kidney and ureter, unspecified; Z90.49 Acquired absence of other specified parts of digestive tract; Z87.891 Personal history of nicotine dependence; Z79.899 Other long term (current) drug therapy; Z79.891 Long term (current) use of opiate analgesic; Z87.19 Personal history of other diseases of the digestive system
CPT/HCPCS: 36415; 71046; 80048; 80053; 81001; 82947; 83036; 83735; 83880; 84145; 84443; 84484; 85025; 85027; 85520; 85610; 85730; 93005; 93010; 93306; 94760; 96365; 96375; 96376; 99285-25; A9270; J0282; J1644; J1940; J3470; J7060

== ENCOUNTER 2023-06-08 11:36 | Observation (INO) | payer OTHER ==
[~2023-06-08] VITALS: Ht 190.5 cm; Wt 72.0 kg
[~2023-06-08 11:36] MED LIST changes: +ACET325 PO; +Amiodarone HCl200 MG PO; +DIGOX125 MC1 PO; +DIGOX250 MC1 PO; +DOCUZEN 8.6-501 EACH PO; +FURO20 PO; +K-TAB ER20 ME1 PO; +METO25ER PO; +TOPROL XL25 MG PO; +XARELTO20 MG PO
[2023-06-08 12:13] LABS: BASOPHILS ABSOLUTE AUTO 0.06 K/mm3 (0.00-0.23); BASOPHILS PERCENT AUTO 0 % (0-2); EOSINOPHILS ABSOLUTE AUTO 0.01 K/mm3 (0.00-0.68); EOSINOPHILS PERCENT AUTO 0 % (0-6); Hemoglobin 10.7 g/dL (13.5-17.5); IMMATURE GRAN ABSOLUTE AUTO 1.34 K/mm3 (0.00-0.10); IMMATURE GRAN PERCENT AUTO 5 % (0-1); LYMPHOCYTES ABSOLUTE AUTO 0.83 K/mm3 (0.84-5.20); LYMPHOCYTES PERCENT AUTO 3 % (21-46); MONOCYTES ABSOLUTE AUTO 1.54 K/mm3 (0.16-1.47); MONOCYTES PERCENT AUTO 6 % (4-13); Mean Corpuscular HGB 23.8 pg (26.0-34.0); Mean Corpuscular HGB Conc 30.6 g/dL (31.5-36.5); Mean Corpuscular Volume 78 fL (80-100); NEUTROPHILS ABSOLUTE AUTO 23.97 K/mm3 (1.96-9.15); NEUTROPHILS PERCENT AUTO 87 % (41-73); RDW Standard Deviation 50.4 fL (35.1-46.3); Red Blood Cell Count 4.49 M/mm3 (4.30-5.90); White Blood Cell Count 27.75 K/mm3 (4.00-11.30)
[2023-06-08] MEDS ORDERED: KEYTRUDA100 MG/41 IV (12:18)
[2023-06-08 12:27] LABS: Platelet Count 47 K/mm3 (150-400)
[2023-06-08 12:36] LABS: Albumin, Blood 2.1 g/dL (3.4-5.0); Albumin/Globulin Ratio 0.7 (0.8-1.8); Bilirubin, Total 0.9 mg/dL (0.1-1.0); Bun/Creatinine Ratio 33.3 (12.0-20.0); Calcium, Blood 6.5 mg/dL (8.5-10.1); Creatinine, Blood 0.57 mg/dL (0.60-1.20); Globulin, Blood 2.9 g/dL (2.2-4.0); Potassium, Blood 2.5 mmol/L (3.5-5.5)
[2023-06-08 12:40] LABS: Source, Urine Clean Catch
[2023-06-08 12:51] LABS: Appearance, Urine Clear (Clear); Bilirubin, Urine Neg (Neg); Blood, Urine Neg (Neg); Color, Urine Yellow (P-Yellow); Glucose Qualitative, Urine Neg (Neg); Ketones, Urine 1+ (Neg); Leukocyte Esterase, Urine Neg (Neg); Nitrite, Urine Neg (Neg); Protein, Urine Neg (Neg); Urobilinogen, Urine NORM (Normal)
--- NOTE | 2023-06-08 18:57 | NUR ---
SUMMARY- PT A/O X3, FORGETFUL. AT BEDSIDE ALL OF THE SHIFT AND VERY INVOLVED IN CARE. SHE PLANS ON GOING HOME TO SLEEP BUT IS LEAVING PHONE #ON BOARD AND WANTS STAFF TO CALL AT ANY HOUR IF SANDRA IS HAVING TROUBLE. SHE SAYS HE IS MORE CONFUSED THAN NORMAL BEING IN THE HOSPITAL. TELE CALLED AT 1846 AND STATES THEY ARE NOTICINT ST ELEVATION IN V, V1 AND RESIDENTIAL OF 163. PT DENIES CHEST PAIN WHEN ASKED. DENIES ANY PAIN. TOLERATING CLEAR LIQ BUD DECLINING SOLID FOODS. HAS NO APPETITE. USING URINAL. WILL SET BED ALARM TONIGHT.
[2023-06-08 19:19] VITALS: BP 123/52
--- NOTE | 2023-06-08 22:06 | NUR ---
CALLED DR COLLINS REPORTED ST ELEVATIONS OF 3.4-3.7, BOTH PATIENT AND STATED NOT WANTING TO DO ANYTHING AND WAIT FOR THE HOSPICE CONSULT TOMORROW, PATIENT ASYMPTOMATIC, RELAYED ALL TO DR COLLINS, TELE DISCONTINUED, CALL LIGHT WITH IN REACH
[2023-06-09 04:08] VITALS: BP 116/53
--- NOTE | 2023-06-09 04:56 | NUR ---
MAKES NEEDS KNOWN, ALERT AND ROEITNED TO SELF, STAFF, AND . PATIENT BECAME MORE AGGITATED AND RESTLESS THIS AM, MEDICATED FOR PAIN WITH HYDROCODONE, PATIENT REPORTS RELIEF, TELE DISCONITNUED, PATIENT AND TO FOLLOW UP WITH HOSPICE CARE TODAY, WILL RELAY TO PM RN
[2023-06-09 05:33] LABS: BASOPHILS ABSOLUTE AUTO 0.06 K/mm3 (0.00-0.23); BASOPHILS PERCENT AUTO 0 % (0-2); EOSINOPHILS ABSOLUTE AUTO 0.03 K/mm3 (0.00-0.68); EOSINOPHILS PERCENT AUTO 0 % (0-6); Hematocrit 32.5 % (37.0-53.0); Hemoglobin 9.7 g/dL (13.5-17.5); IMMATURE GRAN ABSOLUTE AUTO 1.19 K/mm3 (0.00-0.10); IMMATURE GRAN PERCENT AUTO 5 % (0-1); LYMPHOCYTES ABSOLUTE AUTO 0.96 K/mm3 (0.84-5.20); LYMPHOCYTES PERCENT AUTO 4 % (21-46); MONOCYTES ABSOLUTE AUTO 1.85 K/mm3 (0.16-1.47); MONOCYTES PERCENT AUTO 8 % (4-13); Mean Corpuscular HGB 23.4 pg (26.0-34.0); Mean Corpuscular HGB Conc 29.8 g/dL (31.5-36.5); Mean Corpuscular Volume 79 fL (80-100); NEUTROPHILS ABSOLUTE AUTO 19.67 K/mm3 (1.96-9.15); NEUTROPHILS PERCENT AUTO 83 % (41-73); RDW Coefficient Variation 19.2 % (11.7-14.2); RDW Standard Deviation 51.7 fL (35.1-46.3); Red Blood Cell Count 4.14 M/mm3 (4.30-5.90); White Blood Cell Count 23.76 K/mm3 (4.00-11.30)
[2023-06-09 05:51] LABS: Platelet Count 38 K/mm3 (150-400)
[2023-06-09 05:59] LABS: Magnesium, Blood 2.3 mg/dL (1.6-2.4)
[2023-06-09 06:03] LABS: Albumin, Blood 2.5 g/dL (3.4-5.0); Albumin/Globulin Ratio 0.8 (0.8-1.8); Bilirubin, Total 0.9 mg/dL (0.1-1.0); Bun/Creatinine Ratio 30.6 (12.0-20.0); Calcium, Blood 7.9 mg/dL (8.5-10.1); Creatinine, Blood 0.65 mg/dL (0.60-1.20); Globulin, Blood 3.2 g/dL (2.2-4.0); Potassium, Blood 3.2 mmol/L (3.5-5.5); Total Protein, Blood 5.7 g/dL (6.4-8.2)
[2023-06-09 07:58] VITALS: BP 133/55
[2023-06-09 16:09] LABS: SARS-Cov-2 (COVID-19) PCR, MMC NEGATIVE (NEGATIVE)
--- NOTE | 2023-06-09 16:12 | NUR ---
Upon receiving a referral for spiritual care, I visited with the patient and his spouse, Gely. They talk about the decision to place the patient in [facility]. Gely is very tearful about this and states that they have been for nearly 56 yrs and the thought of living apart from each other is overwhelming. The talk about the growth of their love over those many yrs and the many adventures they have been on together. 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 We talk about the things in life they have overcome together and suggest that, it is that same strength that will carry them still. They are both very gracious and kind towards each other and towards the harsh circumstances they face. I reinforce helpful attitudes and practices, normalize their feelings and fears and provide therapeutic listening, gentle dianetic counselor and prayer. Patient and Gely responded well and showed signs of being comforted and reduced stress.
--- NOTE | 2023-06-09 16:53 | NUR ---
SHIFT SUMMARY PT RESTING QUIETLY AT START OF SHIFT. VERY WEAK AND DECONDITIONED. PER SHIFT REPORT, PT AND REQUESTING TO D/C ON HOSPICE AND WAITING FOR PALLIATIVE CARE. PALLIATIVE CARE CONSULT ORDERED. COAT CHECKER LATER IN TO TALK WITH PT AND WELL. BOTH AGREED PT TO BE COMFORTABLE AND D/C ON HOSPICE. ARRANGEMENTS BEING MADE AND SET UP BY COAT CHECKER FOR 10:OO TOMORROW AM. PT AND UPDATED. COVID TEST NEG. PT DECLINED TO EAT MUCH FOR BREAKFAST, BUT LATER REQUESTED CHEERIO'S; CEREAL OBTAINED AND PT'S ASSISTED PT WITH EATING. PT ABLE TO TAKE PO MEDS ONE AT A TIME WITH WATER, ASSISTED BY . PT DENIED FURTHER NEEDS. CALL LT IN REACH.
--- NOTE | 2023-06-09 19:05 | NUR ---
RECEIVED BEDSIDE REPORT FROM HILARIO RN. PT RESTING IN BED WITH EYES CLOSED. RESP E/U ON RA. AT BEDSIDE. NO NEEDS AT THIS TIME. WILL CONTINUE TO PROVIDE CARE T/O SHIFT. CALL LT IN REACH.
--- NOTE | 2023-06-09 19:06 | NUR ---
NO IV ACCESS NOTED. PER DAYSHIFT RN PT WAS TO DISCHARGE TODAY ON HOSPICE BUT HOSPICE SERVICES WAS NOT READY FOR INTAKE. IV WAS REMOVED BY DAYSHIFT RN; PER DAY RN, PT DOES NOT NEED AN IV, WILL DISCHARGE AT 10 AM TOMORROW.
--- NOTE | 2023-06-09 20:30 | NUR ---
PT A/O. TOOK MEDS ONE AT A TIME WHOLE WITH WATER WITHOUT DIFFICULTY. PT'S CURRENTLY FEEDING AN ORANGE POPSICLE TO PT, HIS FAVORITE. NO NEEDS AT THIS TIME. CALL LT IN REACH.
--- NOTE | 2023-06-09 20:49 | NUR ---
WARM BLANKETS GIVEN TO PT. PT VERY SATISFIED WITH CARE. NO NEEDS AT THIS TIME. WILL CONTINUE TO PROVIDE CARE. CALL LT IN REACH.
--- NOTE | 2023-06-09 21:12 | NUR ---
PT RESTING QUIETLY, EYES CLOSED. RESP EVEN. CALL LT IN REACH.
--- NOTE | 2023-06-09 21:55 | NUR ---
PT RESTING QUIETLY. EYES CLOSED. RESP EVEN. CALL LT IN REACH.
--- NOTE | 2023-06-09 23:15 | NUR ---
REPORT GIVEN TO CA PEREZ RN ASSUMING CARE OF PT UNTIL SHIFT REPORT. PT CURRENTLY RESTING QUIETLY. RESP EVEN ON RA. NO NEEDS NOTE AT THIS TIME. CALL LT IN REACH.
--- NOTE | 2023-06-10 04:32 | NUR ---
SHIFT SUMMARY ADMITTED FOR FAILURE TO THRIVE. DNR CODE. PLAN IS FOR DC HOME WITH HOSPICE. HE IS A&O X3. BEDDREST. HE DOES USE A URINAL, CONTINENT/INCONTINENT. ON RA. NO IV ACCESS. REGULAR DIET
[2023-06-10 08:03] VITALS: BP 127/64
--- NOTE | 2023-06-10 11:32 | NUR ---
PT DISCHARGED ON HOSPICE TO [facility]. CALLED [facility] AND GAVE REPORT TO SAUNDRA. PT HELPED TO USE BEDPAN BEFORE DC. PT ALSO HELPED TO DRESS IN CLEAN CLOTHES THE PT'S BROUGHT IN. ALL BELONGINGS SENT WITH PT'S . PT TAKEN BY [facility]IA [facility] DC PACKET GIVEN TO [facility]
== END 2023-06-10 10:04 ==
LOC: ER 11:36 → MEDS 11:37
PROVIDERS: Student in an Organized Health Care Education/Training Program; ADMIT Hospitalist
DX: C34.92 Malignant neoplasm of unspecified part of left bronchus or lung (principal); C79.9 Secondary malignant neoplasm of unspecified site; E87.6 Hypokalemia; N40.0 Benign prostatic hyperplasia without lower urinary tract symptoms; Z51.5 Encounter for palliative care; I10 Essential (primary) hypertension; Z66 Do not resuscitate; R62.7 Adult failure to thrive; Z68.21 Body mass index [BMI] 21.0-21.9, adult; E86.0 Dehydration; D69.6 Thrombocytopenia, unspecified; E83.42 Hypomagnesemia; Z20.822 Contact with and (suspected) exposure to COVID-19
CPT/HCPCS: 36415; 80053; 81003; 83735; 85025; 93005; 93010; 94760; 94762; 96361; 96365; 96366; 96368; 99285-25; A9270; G0378; J3475; J3480; J7030; J7042; J7050; U0002